=== PATIENT | female | born 1975 | race African-American/Black ===

== ENCOUNTER 2020-01-27 11:53 | Emergency (ER) | payer OTHER ==
[~2020-01-27] VITALS: Ht 160 cm; Wt 81.7 kg
[2020-01-27] MEDS ORDERED: MOBIC7.5 MG PO (12:59)
[2020-01-27] MEDS ORDERED: ZANTAC 150MG T150 M1 PO (12:59)
[2020-01-27 13:07] VITALS: BP 121/89
== END 2020-01-27 13:07 | disposition home or self-care (01) ==
LOC: ER 11:53
DX: J02.9 Acute pharyngitis, unspecified (principal); F17.210 Nicotine dependence, cigarettes, uncomplicated; Z88.0 Allergy status to penicillin

== ENCOUNTER 2020-01-31 17:06 | Emergency (ER) | payer OTHER ==
[~2020-01-31] VITALS: Ht 160 cm; Wt 77.1 kg
[~2020-01-31 17:06] MED LIST: MOBIC7.5 MG PO; ZANTAC 150MG T150 M1 PO
[2020-01-31 17:40] LABS: ABSOLUTE NEUTROPHILS 2.4 thou/uL (1.4-8.2); BASOPHILS 0.7 % (0.0-2.0); EOSINOPHILS 1.5 % (0.0-3.0); HEMATOCRIT 39.4 % (37.0-47.0); LYMPHOCYTES 39.9 % (24.0-44.0); MCH 27.8 pg (26.0-34.0); MCHC 32.9 g/dL (28.0-37.0); MCV 84.6 fL (80.0-100.0); MONOCYTES 7.8 % (1.0-8.0); PLATELET COUNT 326 thou/uL (150-400); POLYS 50.1 % (36.0-66.0); RBC 4.66 mil/uL (4.20-5.00); RDW 13.6 % (10.5-14.5); WBC 4.7 thou/uL (4.0-11.0)
[2020-01-31 17:47] LABS: CALCIUM 8.7 mg/dL (8.5-10.1); CREATININE 0.9 mg/dL (0.6-1.0); POTASSIUM 3.5 mmol/L (3.5-5.1)
[2020-01-31 17:53] LABS: TOTAL BILIRUBIN 0.3 mg/dL (<0.1-1.0); TOTAL PROTEIN 7.5 g/dL (6.4-8.2)
[2020-01-31 18:56] LABS: URINE BILIRUBIN NEGATIVE (Negative); URINE BLOOD NEGATIVE (Negative); URINE CLARITY CLEAR; URINE COLOR YELLOW; URINE GLUCOSE-RANDOM* NEGATIVE (Negative); URINE KETONES NEGATIVE (Negative); URINE LEUKOCYTES-REFLEX NEGATIVE (Negative); URINE NITRITE-REFLEX NEGATIVE (Negative); URINE PROTEIN (DIPSTICK) NEGATIVE (Negative); URINE SPECIFIC GRAVITY <= 1.005 (1.005-1.035); URINE UROBILINOGEN 0.2 E.U./dl (0.2-1.0)
[2020-01-31] MEDS ORDERED: CIPRO500 M1 PO (18:57)
[2020-01-31] MEDS ORDERED: FLAGYL500 M1 PO (18:57)
[2020-01-31] MEDS ORDERED: NORCO 5-325 TA1 EAC1 PO (19:02)
[2020-01-31 19:21] VITALS: BP 124/65
== END 2020-01-31 19:22 | disposition home or self-care (01) ==
LOC: ER 17:06
PROVIDERS: Physician Assistant
DX: K51.30 Ulcerative (chronic) rectosigmoiditis without complications (principal); R10.30 Lower abdominal pain, unspecified; M25.551 Pain in right hip; M25.552 Pain in left hip; F17.210 Nicotine dependence, cigarettes, uncomplicated; Z90.710 Acquired absence of both cervix and uterus; Z98.51 Tubal ligation status; Z79.899 Other long term (current) drug therapy; Z88.0 Allergy status to penicillin

== ENCOUNTER 2021-07-06 16:47 | Emergency (ER) | payer OTHER ==
[~2021-07-06 16:47] MED LIST changes: +CIPRO500 M1 PO; +FLAGYL500 M1 PO; +NORCO 5-325 TA1 EAC1 PO
== END 2021-07-06 17:21 | disposition left against medical advice (07) ==
LOC: ER 16:47
DX: J02.9 Acute pharyngitis, unspecified (principal); Z53.21 Procedure and treatment not carried out due to patient leaving prior to being seen by health care provider